=== PATIENT | female | born 1965 | race Caucasian/White ===

== ENCOUNTER → 2024-03-05 | Outpatient (CLI) | payer MEDICARE, MEDICAID, SELFPAY ==
--- NOTE | 2024-03-05 11:00 | MRI_ITS ---
STUDY: MRI RIGHT SHOULDER REASON FOR EXAM: Female, 58 years old. Pain - history of right dislocation right clavicle 3 months ago. TECHNIQUE: Standardized fat and water weighted pulse sequences were obtained in all 3 orthogonal planes. COMPARISON: None. FINDINGS: There is supraspinatus, infraspinatus, and subscapularis tendinosis without a full-thickness tear. Normal teres minor tendon. Normal supraspinatus muscle. Normal infraspinatus muscle. Normal subscapularis muscle. Normal teres minor muscle. Normal glenohumeral articulation. Normal humeral head and visualized proximal humerus. Normal biceps labral complex. Normal intracapsular long biceps tendon. Normal labrum. Normal capsulo-ligamentous complex. Normal rotator interval. There is severe hypertrophic acromioclavicular arthrosis with osseous fragmentation and inferior osteophyte formation, with effacement of the supraspinatus myotendinous junction. There is a Type II morphology (curved), with a neutral orientation. There is trace subacromial-subdeltoid bursal fluid. Normal visualized coracohumeral and coracoacromial ligaments. Normal quadrilateral space. Normal axillary space. Normal deltoid muscle. Normal trapezius muscle. MRI/Upper Ext Joint Only(Routine) IMPRESSION: Supraspinatus, infraspinatus, and subscapularis tendinosis without a full-thickness rotator cuff tear. Severe hypertrophic acromioclavicular arthrosis with osseous fragmentation and inferior osteophyte formation, with effacement of the supraspinatus myotendinous junction. Minimal subacromial-subdeltoid bursitis. Electronically Signed: Josue Staton MD at 9:19 EDT ,
== END | disposition home or self-care (01) ==
PROVIDERS: PCP Internal Medicine; Referring Provider Orthopaedic Surgery Sports Medicine; Visit Provider Orthopaedic Surgery Sports Medicine
DX: M25.511 Pain in right shoulder (principal)
CPT/HCPCS: 73221

== ENCOUNTER → 2024-09-14 | Outpatient (CLI) | payer MEDICARE, MEDICAID, SELFPAY ==
--- NOTE | 2024-07-31 00:57 | EKG12_ITS ---
Test Reason : PRE-OP Blood Pressure : */* mmHG Vent. Rate : 64 BPM Atrial Rate : 64 BPM P-R Int : 196 ms QRS Dur : 96 ms QT Int : 424 ms P-R-T Axes : 26 4 30 degrees QTcB Int : 437 ms Normal sinus rhythm Normal ECG No previous ECGs available Confirmed by SILVIA ALMANZA, CYNDEE ([id number]), editor greeting card NALINI WORKMAN ([id number]) on 08/07/2024 7:40:40 AM Referred By: Joao Riggins Confirmed By: CYNDEE VEGA MD
[2024-08-01 06:06] VITALS: BP 113/87; PULSE 97; RESP 16; TEMP 36.1; O2SAT 72; BMI 30.9
[2024-08-01] MEDS: 0.9% Normal Saline (1000mL) 1,000 ML 15 ML IV (06:15)
[2024-08-01 06:24] LABS: Hematocrit 41.8 % (37-47); Hemoglobin 14.7 g/dL (12.0-15.0); Mean Corp Hgb Conc 35.2 g/dL (32-36); Mean Corpuscular Hgb 32.5 pg (27.0-32.0); Mean Corpuscular Volume 92.3 fL (81-99); Platelet Count 182 K/mm3 (150-450); RBC Distribution Width CV 13.2 % (11.6-14.6); RBC Distribution Width SD 44.5 fl (35.1-43.9); Red Blood Count 4.53 M/mm3 (4.2-5.4); White Blood Count 5.7 K/mm3 (4.4-11.0)
[2024-08-01 06:35] LABS: Partial Thromboplast Time 23.7 Seconds (24.1-36.2)
--- NOTE | 2024-08-01 06:40 | PRE.ANES_ITS ---
ASA Classification* ASA Classification ASA Classification: 2 Assessment & Plan Anesthesia* Anesthesia Assessment Anesthesia Assessment: Discussed sedation and/or anesthesia options, risks, benefits, and alternatives with patient/parents/legal guardian/POA. Questions invited. The patient/parents/legal guardian/POA seems to understand and agrees to proceed with anesthesia plan. Reviewed the physical assessment, medical history, allergy history and patient home medications list prior to surgery/procedure/anesthetic and documented any changes. Performed airway and anesthesia risk assessments. Anesthesia Type Anesthesia Type: General and Block (Patient is consented for interscalene block.) History Source History Obtained from:: Patient and Chart Anesthesia Focused Assessment* Temperature: 97 F Pulse Rate: 97 Blood Pressure: 113/87 Respiratory Rate: 16 Pulse Ox: 72 Oxygen Delivery Method: Room Air Airway Assessment Mouth opens: >3 cm Mallampati Score: IV Teeth Condition: Dentures (Upper full dentures) and Partial (Lower partials. They are out. Rest are tight.) Neck Range of motion (ROM): Limited ROM (Somewhat decreased extension) Focused Labs Anesthesia Preop lab: CBC CHEMISTRY COAG Pre-Assessment Diagnosis/Proposed Procedure Planned Operative Procedure(s): RIGHT SHOULDER ARTHROSCOPY SUBCROMIAL DECOMPRESSION DISTAL CLAVICLE EXCISION Anesthesia History Anesthesia History - director telecommunications: Anesthesia History - director telecommunications Hx Hospitalization No 07/30/24 14:30 Any Problems With Anesthesia No 07/30/24 14:30 Cholinesterase deficiency No 07/30/24 14:30 You/Your Family Experience No 07/30/24 14:30 fever (hyperthermia) with Relationship Recent Exposure to Contagious No 08/01/24 06:06 Disease Does patient have nerve No 07/30/24 14:30 stimulator Patient instructed to have device shut off --Does patient have Pacemaker No 08/01/24 06:06 or ICD? When Was Last Pacemaker Check QUESTION #4 FULL TEXT: You/Your Family Experience fever (hyperthermia) with Anesthesia Last Oral Intake Last Oral intake: Last Oral Intake NPO since 05:00 08/01/24 06:06 Meds taken in AM with sips of water? Meds patient instructed to take am of surgery Any additional information?: Yes NPO since: 05:00 (Patient had water at 5 AM.) PONV PONV - director telecommunications: PONV - director telecommunications Female Yes 07/30/24 14:30 HX of Motion Sickness No 07/30/24 14:30 HX of N/V After Surgery No 07/30/24 14:30 Non-Smoker Yes 07/30/24 14:30 Duration of Surgery greater Yes 07/30/24 14:30 than 60 minutes Number of Risk Factors 3 07/30/24 14:30 PONV Score Moderate Risk 07/30/24 14:30 Height & Weight Height & Weight: Anesthesia: Height & Weight Height 5 ft 6 in 08/01/24 06:06 Weight: 87.09 kg 08/01/24 06:06 Body Mass Index (BMI) 30.9 08/01/24 06:06 Respiratory Assessment Respiratory Assessment - director telecommunications: Respiratory Tract Infection Hx - director telecommunications Hx Respiratory Tract Infection No 07/30/24 14:30 STOP Sleep Apnea STOP Sleep Apnea - director telecommunications: STOP Sleep Apnea - director telecommunications Hx Hypertension Yes: CONTROLLED WITH MED 07/30/24 14:30 Hx Sleep Apnea No 07/30/24 14:30 CPAP BIPAP Do you snore loudly (louder No 07/30/24 14:30 than talking or can be heard Do you often feel tired/ Yes 07/30/24 14:30 fatigued/ sleepy during daytime? Has anyone observed you stop No 07/30/24 14:30 breathing during sleep? STOP Results Positive 07/30/24 14:30 QUESTION #5 FULL TEXT : Do you snore loudly (louder than talking or can be heard through closed doors)? 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 Specify any problems Hx of Preganancy in last 3 No 07/30/24 14:30 Months Nurse Filling Out Transfusion DSCHRIBER 07/30/24 14:30 & Questions: Date: 07/30/24 07/30/24 14:30 Time: 14:31 07/30/24 14:30 Patient unable to answer at this time (ie. confused, unrespo /Reproduction History /Reproductive History - director telecommunications: /Reproductive Hx- director telecommunications Hx Now No 07/30/24 14:30 Gestational Age (in weeks): EDC: Hx Hx Para Hx Section SAB No 07/30/24 14:30 Active Medications Active Medications: Current Medications Generic Name Dose Route Start Last Admin Trade Name Freq PRN Reason Stop Dose Admin Cefazolin Sodium 2 gm/ N/A 20 mls @ 400 mls/hr 08/01/24 07:30 IV 08/01/24 07:32 PREOP ONE Sodium Chloride 1,000 mls @ 15 mls/hr 08/01/24 05:50 08/01/24 06:15 IV 08/06/24 19:09 15 mls/hr .Q48H JOAN Administration Protocol PFSH Medical History Wears contact lenses Wears glasses Wears partial dentures Wears dentures Migraine headache Depression Marijuana use Alcohol use Arthritis Pulmonary embolism High cholesterol Easy bruising Back pain Injury of head and neck Former smoker Chronic cough Hypertension Tendinosis of right rotator cuff Impingement of right shoulder Arthrosis of right acromioclavicular joint Breast cancer Right shoulder pain Home Medications ?Medication ?Instructions ?Recorded ?Last Taken ?Type atorvastatin 40 mg tablet 40 mg PO QHS cholesterol 01/19/24 07/31/24 History chlorthalidone 25 mg tablet 25 mg PO QDAY 01/19/24 07/31/24 History fexofenadine 60 mg tablet (Ursula 60 mg PO DAILY 01/19/24 07/31/24 History Allergy) sertraline 100 mg tablet 100 mg PO QDAY 01/19/24 07/31/24 History topiramate 25 mg tablet 25 mg PO BID 01/19/24 07/31/24 History valacyclovir 500 mg tablet 500 mg PO QDAY 01/19/24 07/31/24 History Allergy/AdvReac Type Severity Reaction Status Date / Time [place] Allergy Other Verified 08/01/24 06:05 ibuprofen AdvReac Vomiting Verified 08/01/24 06:05 Family History Other Cancer Heart disease Hypertension Leukemia Surgical History History of laparoscopic cholecystectomy H/O breast surgery H/O tubal ligation H/O toe surgery H/O brain surgery Social History household members: spouse Smoking Status: Former smoker alcohol intake: current alcohol intake frequency: holidays/special occasions only Review of Systems (Anesthesia) ROS Narrative System reviewed and no additional complaints, except as documented.
[2024-08-01 06:42] VITALS: BP 113/87; PULSE 97; RESP 16; TEMP 36.1; O2SAT 72
[2024-08-01 06:48] LABS: AST(SGOT) 87 U/L (15-37); Alanine Aminotransfer ALT/SGPT 105 U/L (13-56); Albumin, Serum 3.9 g/dL (3.2-5.0); Alkaline Phosphatase 99 U/L (45-117); Anion Gap 9 (5-15); BUN 13 mg/dL (7-18); BUN/Creat Ratio 22.5 RATIO (10-20); Bilirubin, Direct 0.21 mg/dL (0.00-0.30); Calcium,Total 9.4 mg/dL (8.5-10.1); Chloride 100 mmol/L (98-107); Creatinine, Serum 0.58 mg/dL (0.55-1.02); EST Glomerular Filtration Rate 114 mL/min (>60); Est Glom Filt Rate - Afr Amer 138 mL/min (>60); Globulin 3.9 g/dL (2.2-4.2); Glucose 124 mg/dL (74-106); Potassium 2.7 mmol/L (3.5-5.1); Protein, Total 7.8 g/dL (6.4-8.2); Sodium Level 136 mmol/L (136-145)
[2024-08-01] MEDS: Potassium Chloride Oral Tablet 20 MEQ PO (07:13)
[2024-08-01] MEDS: Potassium Chloride 20mEq/100mL 20 MEQ/100 ML IV.SOLN. 50 MEQ IV (07:14)
--- NOTE | 2024-08-01 07:58 | PCM.HP.STD ---
HPI - General HPI Narrative CAL SMITH, is a 59 F who presents for right shoulder arthroscopy, subacromial decompression, debridement, distal clavicle excision. No changes to history and physical exam. Right shoulder marked. Risks alternatives benefits as well as postoperative recovery and narcotic counseling done. Patient understands wished to proceed. The patient did have a low potassium that is being corrected by anesthesia if that can come up to within the normal range then we will proceed with the case otherwise this may have to be delayed or canceled. MR#: [id number] Acct: [id number] Name: CAL SMITH Rep #: [id number] : 1965 Provider: Dr. Joao Riggins MD Age/Sex: 58/F Location: [facility] [place] Status: Signed Intake Vital Signs 01/19/2408:47 Height 5 ft 6 in Weight: 202 lb 6 oz BMI 32.6 Intake Visit Reasons: RIGHT SHOULDER Accompanied by: Self Is patient in pain?: Yes Pain scale (1-10): 8 Allergies [place] Allergy (Verified 03/08/24 14:17) Otheribuprofen Adverse Reaction (Verified 03/08/24 14:17) Vomiting Medications ?Medication ?Instructions ?Recorded ?Confirmed ?Type atorvastatin 40 mg tablet 40 mg PO QHS cholesterol 01/19/24 01/19/24 History chlorthalidone 25 mg tablet 25 mg PO QDAY 01/19/24 01/19/24 History fexofenadine 60 mg tablet (Ursula 60 mg PO DAILY 01/19/24 01/19/24 History Allergy) sertraline 100 mg tablet 100 mg PO QDAY 01/19/24 01/19/24 History topiramate 25 mg tablet 25 mg PO BID 01/19/24 01/19/24 History valacyclovir 500 mg tablet 500 mg PO QDAY 01/19/24 01/19/24 History oxycodone-acetaminophen 5 mg-325 tab PO PRN 03/08/24 03/08/24 History mg tablet PFSH Medical History Tendinosis of right rotator cuff Impingement of right shoulder Arthrosis of right acromioclavicular joint Breast cancer Cholecystectomy planned Right shoulder pain Surgical History H/O breast surgery H/O tubal ligation H/O toe surgery H/O brain surgery Family History Other Cancer Heart disease Hypertension Leukemia Social History household members: spouse Smoking Status: Former smoker alcohol intake: current alcohol intake frequency: holidays/special occasions only HPI RIGHT SHOULDER Details: This documentation accurately reflects the service provided and the decisions made by me, Dr. Joao Riggins MD 03/08/24 0846. Part of today?s visit was documented by [ ], acting as scribe. CAL SMITH is a 58 year old F here today for FU R shoulder MRI. Patient still having pain on the lateral aspect of the shoulder going down the arm worse at night and with lifting. Patient had an injury many years ago to the AC joint as well. They felt like the injection only helped about 15%. Supplemental Info [facility] Imaging Services [facility] [place], [place] [address] Upper Ext Joint Only(Routine) MR#: [id number] Acct: [id number] Name: CAL SMITH Rep #: [id number] : 1965 F 58 From: Josue Staton MD PCP: Dr. Kait Hall, Status: REG CLI Study: Upper Ext Joint Only(Routine) Date of Exam: 03/05/24 Exam# [id number] Ordering Dr: Joao Riggins MD STUDY: MRI RIGHT SHOULDER REASON FOR EXAM: Female, 58 years old. Pain - history of right dislocation right clavicle 3 months ago. TECHNIQUE: Standardized fat and water weighted pulse sequences were obtained in all 3 orthogonal planes. COMPARISON: None. FINDINGS: There is supraspinatus, infraspinatus, and subscapularis tendinosis without a full-thickness tear. Normal teres minor tendon. Normal supraspinatus muscle. Normal infraspinatus muscle. Normal subscapularis muscle. Normal teres minor muscle. Normal glenohumeral articulation. Normal humeral head and visualized proximal humerus. Normal biceps labral complex. Normal intracapsular long biceps tendon. Normal labrum. Normal capsulo-ligamentous complex. Normal rotator interval. There is severe hypertrophic acromioclavicular arthrosis with osseous fragmentation and inferior osteophyte formation, with effacement of the supraspinatus myotendinous junction. There is a Type II morphology (curved), with a neutral orientation. There is trace subacromial-subdeltoid bursal fluid. Normal visualized coracohumeral and coracoacromial ligaments. Normal quadrilateral space. Normal axillary space. Normal deltoid muscle. Normal trapezius muscle. MRI/Upper Ext Joint Only(Routine) IMPRESSION: Supraspinatus, infraspinatus, and subscapularis tendinosis without a full-thickness rotator cuff tear. Severe hypertrophic acromioclavicular arthrosis with osseous fragmentation and inferior osteophyte formation, with effacement of the supraspinatus myotendinous junction. Minimal subacromial-subdeltoid bursitis. Electronically Signed: Josue Staton MD at 9:19 EDT Reading Location ID and State: [address] [place] [address] , Service support , I independently reviewed the imaging. Concur with radiologist report. Coding Level of Care Code Off vis,est,level 3 Diagnoses Arthrosis of right acromioclavicular joint M19.011 Right shoulder pain M25.511 Impingement of right shoulder M25.811 Tendinosis of right rotator cuff M67.813 Assessment and Plan Assessment and Plan (1) Arthrosis of right acromioclavicular joint: Status: Acute Plan: 58-year-old female with right shoulder pain pain at the AC joint positive cross body adduction test with arthritis and arthrosis of the AC joint impingement on the rotator cuff with no tears. Patient counseled as the diagnosis prognosis different treatment options available including but not limited to doing nothing rest ice anti-inflammatories active modifications repeat cortisone injections physical therapy and surgery. In the setting in my hands would be in the form of right shoulder arthroscopy, subacromial decompression, debridement, distal clavicle excision. Counseled patient on the risks of this including risks of instability at the AC joint damage other structures possible need for repair of the rotator cuff if I saw tear or other concomitant procedures based on intraoperative arthroscopy findings. They understand wish to proceed with surgery no further questions or concerns. Pros and cons risks and benefits were discussed with the patient including but not limited to infection, pain, stiffness, bleeding, damage to surrounding structures, neurovascular injury, recurrence or retear, failure or wear of hardware or fixation, instability, fracture, deep vein thrombosis and pulmonary embolism, anesthetic risks, , patient dissatisfaction, need for further surgery and other risks. Patient understood and wished to proceed with surgery, and signed the informed consent documentation. (2) Right shoulder pain: Status: Acute (3) Impingement of right shoulder: Status: Acute (4) Tendinosis of right rotator cuff: Status: Acute Ortho Exam General General: Yes no acute distress Neurologic: Yes alert and Yes oriented x3 Psychologic: Yes reasonable and appropriate Right Shoulder Skin/Wound: Yes CDI, No ecchymosis, No erythema and No swelling Testing: Positive Hawkin's, Neer's, Speed's, TTP Biceps, TTP AC Joint, empty can, [place], cross arm and belly press normal; Negative Drop Arm, Apprehension Test or scapular winging SHOULDER: normal motor and sens to ax nerve, and MRU and AIN/PIN Active forward elevation 110 degrees passively 165 degrees. External rotation 45 degrees. Internal rotation back pocket. Strength in forward elevation 4/5 strength in external rotation 4+/5. [facility] Medical History Wears contact lenses Wears glasses Wears partial dentures Wears dentures Migraine headache Depression Marijuana use Alcohol use Arthritis Pulmonary embolism High cholesterol Easy bruising Back pain Injury of head and neck Former smoker Chronic cough Hypertension Tendinosis of right rotator cuff Impingement of right shoulder Arthrosis of right acromioclavicular joint Breast cancer Right shoulder pain Home Medications ?Medication ?Instructions ?Recorded ?Last Taken ?Type atorvastatin 40 mg tablet 40 mg PO QHS cholesterol 01/19/24 07/31/24 History chlorthalidone 25 mg tablet 25 mg PO QDAY 01/19/24 07/31/24 History fexofenadine 60 mg tablet (Ursula 60 mg PO DAILY 01/19/24 07/31/24 History Allergy) sertraline 100 mg tablet 100 mg PO QDAY 01/19/24 07/31/24 History topiramate 25 mg tablet 25 mg PO BID 01/19/24 07/31/24 History valacyclovir 500 mg tablet 500 mg PO QDAY 01/19/24 07/31/24 History Allergy/AdvReac Type Severity Reaction Status Date / Time [place] Allergy Other Verified 08/01/24 06:05 ibuprofen AdvReac Vomiting Verified 08/01/24 06:05 Family History Other Cancer Heart disease Hypertension Leukemia Surgical History History of laparoscopic cholecystectomy H/O breast surgery H/O tubal ligation H/O toe surgery H/O brain surgery Social History household members: spouse Smoking Status: Former smoker alcohol intake: current alcohol intake frequency: holidays/special occasions only Vital Signs Vital Signs Vital Signs: 08/01/24 06:06 08/01/24 06:06 08/01/24 06:48 Temperature 97 F L 97 F L Temperature Source Temporal Pulse Rate 97 97 Respiratory Rate 16 16 Respiratory Pattern Normal Blood Pressure 113/87 H 113/87 H Blood Pressure Mean 95 Blood Pressure Source Monitor Blood Pressure Position Semi-Fowlers Blood Pressure Location Right Arm Pulse Ox 72 72 Oxygen Delivery Method Room Air Room Air Weight Weight: 192 lb Body Mass Index (BMI) 30.9 Results Lab / Micro Data 08/01/24 06:00 08/01/24 06:00 Labs: Laboratory Results - last 24 hr 08/01/24 06:00: WBC 5.7, RBC 4.53, Hgb 14.7, Hct 41.8, MCV 92.3, MCH 32.5 H, MCHC 35.2, RDW Std Deviation 44.5 H, RDW Coeff of Jina 13.2, Plt Count 182, MPV 11.0, PT 13.0, INR 1.0, APTT 23.7 L, Sodium 136, Potassium 2.7 L*, Chloride 100, Carbon Dioxide 27.0, Anion Gap 9, BUN 13, Creatinine 0.58, Estim Creat Clear Calc 116.10, Est GFR (MDRD) Af Amer 138, Est GFR (MDRD) Non-Af 114, BUN/Creatinine Ratio 22.5 H, Glucose 124 H, Calcium 9.4, Total Bilirubin 0.70, Direct Bilirubin 0.21, AST 87 H, ALT 105 H, Alkaline Phosphatase 99, Total Protein 7.8, Albumin 3.9, Globulin 3.9
[2024-08-01 10:46] LABS: Potassium 2.8 mmol/L (3.5-5.1)
--- NOTE | 2024-08-01 10:54 | PN.ORTHO_ITS ---
Objective Data Objective Data Vital Signs: Vital Signs Temp Pulse Resp BP Pulse Ox O2 Del Method 97 F L 97 16 113/87 H 72 Room Air 08/01/24 06:42 08/01/24 06:42 08/01/24 06:42 08/01/24 06:42 08/01/24 06:42 08/01/24 06:48 Oxygen Delivery Method Room Air Weight: 192 lb Body Mass Index (BMI) 30.9 Intake & Output: Intake and Output for Last 24 Hours 07/30/24 07/31/24 08/01/24 23:59 23:59 23:59 Intake Total 100 / 100 Balance 100 / 100 Lab / Micro Data 08/01/24 06:00 08/01/24 10:11 Labs: Laboratory Results - last 24 hr 08/01/24 06:00: WBC 5.7, RBC 4.53, Hgb 14.7, Hct 41.8, MCV 92.3, MCH 32.5 H, MCHC 35.2, RDW Std Deviation 44.5 H, RDW Coeff of Jina 13.2, Plt Count 182, MPV 11.0, PT 13.0, INR 1.0, APTT 23.7 L, Sodium 136, Potassium 2.7 L*, Chloride 100, Carbon Dioxide 27.0, Anion Gap 9, BUN 13, Creatinine 0.58, Estim Creat Clear Calc 116.10, Est GFR (MDRD) Af Amer 138, Est GFR (MDRD) Non-Af 114, B UN/Creatinine Ratio 22.5 H, Glucose 124 H, Calcium 9.4, Total Bilirubin 0.70, Direct Bilirubin 0.21, AST 87 H, ALT 105 H, Alkaline Phosphatase 99, Total Protein 7.8, Albumin 3.9, Globulin 3.9 08/01/24 10:11: Potassium 2.8 L Assessment & Plan Assessment/Plan (1) Tendinosis of right rotator cuff: PLAN: CASE CANCELLED due to low potassium. only came up to 2.8. too low for anesthesia. Will arrange FU with GP to get K up to at least > 3 for day of surgery. Patient explained reasons. We tried to get K up, but unable to achieve a safe level. (2) Impingement of right shoulder:
== END | disposition home or self-care (01) ==
LOC: AC 08-01 05:54 → PAT 12:58
PROVIDERS: Anesthesiology; PCP Internal Medicine; Referring Provider Orthopaedic Surgery Sports Medicine; Visit Provider Orthopaedic Surgery Sports Medicine
DX: M19.011 Primary osteoarthritis, right shoulder (principal); M75.41 Impingement syndrome of right shoulder; Z53.9 Procedure and treatment not carried out, unspecified reason; R07.9 Chest pain, unspecified; E87.6 Hypokalemia; Z87.891 Personal history of nicotine dependence
CPT/HCPCS: 29824; 29826; 80048; 80076; 84132; 85027; 85610; 85730; 93005; J2405

== ENCOUNTER 2024-10-31 07:04 | Day surgery (SDC) | payer MEDICARE, MEDICAID, SELFPAY ==
[2024-10-31] VITALS (10 sets, daily range): BP systolic 120–153; BP diastolic 71–94; PULSE 55–72; RESP 14–16; TEMP 35.7–36.1; O2SAT 89–97; BMI 31.1
[2024-10-31] MEDS: Lactated Ringers 1,000 ML 15 ML IV (07:43)
--- NOTE | 2024-10-31 08:16 | PCM.PRE.AN2 ---
ASA Classification* ASA Classification ASA Classification: 2 Assessment & Plan Anesthesia* Anesthesia Assessment Anesthesia Assessment: Discussed sedation and/or anesthesia options, risks, benefits, and alternatives with patient/parents/legal guardian/POA. Questions invited. The patient/parents/legal guardian/POA seems to understand and agrees to proceed with anesthesia plan. Reviewed the physical assessment, medical history, allergy history and patient home medications list prior to surgery/procedure/anesthetic and documented any changes. Performed airway and anesthesia risk assessments. Anesthesia Type Anesthesia Type: General (repeat potassium lab) and Block Anesthesia Focused Assessment* Temperature: 96.3 F Pulse Rate: 55 Blood Pressure: 120/71 Respiratory Rate: 16 Pulse Ox: 97 Airway Assessment Mouth opens: >3 cm Mallampati Score: II Focused Labs Anesthesia Preop lab: CBC WBC 5.7 K/mm3 (4.4-11.0) 08/01/24 06:00 08/01/24 RBC 4.53 M/mm3 (4.2-5.4) 08/01/24 06:00 08/01/24 Hgb 14.7 g/dL (12.0-15.0) 08/01/24 06:00 08/01/24 Hct 41.8 % (37-47) 08/01/24 06:00 08/01/24 Plt Count 182 K/mm3 (150-450) 08/01/24 06:00 08/01/24 CHEMISTRY Potassium 2.8 mmol/L (3.5-5.1) L 08/01/24 10:11 08/01/24 Sodium 136 mmol/L (136-145) 08/01/24 06:00 08/01/24 BUN 13 mg/dL (7-18) 08/01/24 06:00 08/01/24 Creatinine 0.58 mg/dL (0.55-1.02) 08/01/24 06:00 08/01/24 Glucose 124 mg/dL (74-106) H 08/01/24 06:00 08/01/24 COAG PT 13.0 SECONDS (11.7-14.9) 08/01/24 06:00 08/01/24 Pre-Assessment Diagnosis/Proposed Procedure Planned Operative Procedure(s): (R) Right shoulder Arthroscopy, subacromial decompression, debridement, distal clavicle excision Anesthesia History Anesthesia History - service provider: Anesthesia History - service provider Hx Hospitalization No 10/18/24 11:58 Any Problems With Anesthesia No 10/18/24 11:58 Cholinesterase deficiency No 10/18/24 11:58 You/Your Family Experience No 10/18/24 11:58 fever (hyperthermia) with Relationship Recent Exposure to Contagious No 10/31/24 07:40 Disease Does patient have nerve No 10/18/24 11:58 stimulator Patient instructed to have device shut off --Does patient have Pacemaker No 10/31/24 07:40 or ICD? When Was Last Pacemaker Check QUESTION #4 FULL TEXT: You/Your Family Experience fever (hyperthermia) with Anesthesia Last Oral Intake Last Oral intake: Last Oral Intake NPO since 21:00 10/31/24 07:40 Meds taken in AM with sips of No 10/31/24 07:40 water? Meds patient instructed to take am of surgery PONV PONV - service provider: PONV - service provider Female Yes 10/18/24 11:58 HX of Motion Sickness No 10/18/24 11:58 HX of N/V After Surgery No 10/18/24 11:58 Non-Smoker Yes 10/18/24 11:58 Duration of Surgery greater Yes 10/18/24 11:58 than 60 minutes Number of Risk Factors 3 10/18/24 11:58 PONV Score Moderate Risk 10/18/24 11:58 Height & Weight Height & Weight: Anesthesia: Height & Weight Height 5 ft 6 in 10/31/24 07:40 Weight: 87.7 kg 10/31/24 07:40 Body Mass Index (BMI) 31.1 10/31/24 07:40 Respiratory Assessment Respiratory Assessment - service provider: Respiratory Tract Infection Hx - service provider Hx Respiratory Tract Infection No 10/18/24 11:58 STOP Sleep Apnea STOP Sleep Apnea - service provider: STOP Sleep Apnea - service provider Hx Hypertension No 10/18/24 11:58 Hx Sleep Apnea No 10/18/24 11:58 CPAP BIPAP Do you snore loudly (louder No 10/18/24 11:58 than talking or can be heard Do you often feel tired/ No 10/18/24 11:58 fatigued/ sleepy during daytime? Has anyone observed you stop No 10/18/24 11:58 breathing during sleep? STOP Results Negative 10/18/24 11:58 QUESTION #5 FULL TEXT : Do you snore loudly (louder than talking or can be heard through closed doors)? 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 Specify any problems Hx of Preganancy in last 3 N/A 10/18/24 11:58 Months Nurse Filling Out Transfusion NBUCHER 10/18/24 11:58 & Questions: Date: 10/18/24 10/18/24 11:58 Time: 12:00 10/18/24 11:58 Patient unable to answer at this time (ie. confused, unrespo /Reproduction History /Reproductive History - service provider: /Reproductive Hx- service provider Hx Now No 10/18/24 11:58 Gestational Age (in weeks): EDC: Hx Hx Para Hx Section SAB No 10/18/24 11:58 Active Medications Active Medications: Current Medications Generic Name Dose Route Start Last Admin Trade Name Freq PRN Reason Stop Dose Admin Cefazolin Sodium 2 gm/ N/A 20 mls @ 400 mls/hr 10/31/24 09:10 IV 10/31/24 09:12 INTRAOP ONE Lactated Ringer's 1,000 mls @ 15 mls/hr 10/31/24 07:30 10/31/24 07:43 IV 15 mls/hr .Q48H JOAN Administration PFSH Medical History Wears contact lenses Wears glasses Wears partial dentures Wears dentures Migraine headache Depression Marijuana use Alcohol use Arthritis Pulmonary embolism High cholesterol Easy bruising Back pain Injury of head and neck Former smoker Chronic cough Hypertension Tendinosis of right rotator cuff Impingement of right shoulder Arthrosis of right acromioclavicular joint Breast cancer Right shoulder pain Home Medications ?Medication ?Instructions ?Recorded ?Last Taken ?Type atorvastatin 40 mg tablet 40 mg PO QHS cholesterol 01/19/24 10/30/24 History chlorthalidone 25 mg tablet 25 mg PO QDAY 01/19/24 10/30/24 History fexofenadine 60 mg tablet (Ursula 60 mg PO DAILY 01/19/24 10/30/24 History Allergy) sertraline 100 mg tablet 100 mg PO QDAY 01/19/24 10/30/24 History topiramate 25 mg tablet 25 mg PO BID 01/19/24 10/30/24 History valacyclovir 500 mg tablet 500 mg PO QDAY 01/19/24 10/30/24 History Allergy/AdvReac Type Severity Reaction Status Date / Time cowlitz Allergy Other Verified 10/31/24 07:30 ibuprofen AdvReac Vomiting Verified 10/31/24 07:30 Family History Other Cancer Heart disease Hypertension Leukemia Surgical History History of laparoscopic cholecystectomy H/O breast surgery H/O tubal ligation H/O toe surgery H/O brain surgery Social History household members: spouse Smoking Status: Former smoker alcohol intake: current alcohol intake frequency: holidays/special occasions only Review of Systems (Anesthesia) ROS Narrative System reviewed and no additional complaints, except as documented.
[2024-10-31 08:31] LABS: Potassium 3.3 mmol/L (3.3-5.1)
--- NOTE | 2024-10-31 08:44 | PCM.HP.STD ---
HPI - General HPI Narrative CAL SMITH, is a 59 F who presents for right shoulder arthroscopy, subacromial decompression, debridement, distal clavicle excision. No changes to history and physical exam. Right shoulder marked. Risks alternatives benefits as well as postoperative recovery and narcotic counseling done. Patient understands wished to proceed. [Last time was delayed for potassium issues. ] MR#: [id number] Acct: [id number] Name: CAL SMITH Rep #: [id number] : 1965 Provider: Dr. Joao Riggins MD Age/Sex: 58/F Location: [facility] [place] Status: Signed Intake Vital Signs 01/19/2408:47 Height 5 ft 6 in Weight: 202 lb 6 oz BMI 32.6 Intake Visit Reasons: RIGHT SHOULDER Accompanied by: Self Is patient in pain?: Yes Pain scale (1-10): 8 Allergies port gamble Allergy (Verified 03/08/24 14:17)Otheribuprofen Adverse Reaction (Verified 03/08/24 14:17) Vomiting Medications ?Medication ?Instructions ?Recorded ?Confirmed ?Type atorvastatin 40 mg tablet 40 mg PO QHS cholesterol 01/19/24 01/19/24 History chlorthalidone 25 mg tablet 25 mg PO QDAY 01/19/24 01/19/24 History fexofenadine 60 mg tablet (Ursula 60 mg PO DAILY 01/19/24 01/19/24 History Allergy) sertraline 100 mg tablet 100 mg PO QDAY 01/19/24 01/19/24 History topiramate 25 mg tablet 25 mg PO BID 01/19/24 01/19/24 History valacyclovir 500 mg tablet 500 mg PO QDAY 01/19/24 01/19/24 History oxycodone-acetaminophen 5 mg-325 tab PO PRN 03/08/24 03/08/24 History mg tablet PFSH Medical History Tendinosis of right rotator cuff Impingement of right shoulder Arthrosis of right acromioclavicular joint Breast cancer Cholecystectomy planned Right shoulder pain Surgical History H/O breast surgery H/O tubal ligation H/O toe surgery H/O brain surgery Family History Other Cancer Heart disease Hypertension Leukemia Social History household members: spouse Smoking Status: Former smoker alcohol intake: current alcohol intake frequency: holidays/special occasions only HPI RIGHT SHOULDER Details: This documentation accurately reflects the service provided and the decisions made by me, Dr. Joao Riggins MD 03/08/24 0846. Part of today?s visit was documented by [ ], acting as scribe. CAL SMITH is a 58 year old F here today for FU R shoulder MRI. Patient still having pain on the lateral aspect of the shoulder going down the arm worse at night and with lifting. Patient had an injury many years ago to the AC joint as well. They felt like the injection only helped about 15%. Supplemental Info [facility] [address] [place] [address] Upper Ext Joint Only(Routine) MR#: [id number] Acct: [id number] Name: CAL SMITH Rep #: [id number] : 1965 F 58 From: Josue Staton MD PCP: Dr. Kait Hall, DO Status: REG CLI Study: Upper Ext Joint Only(Routine) Date of Exam: 03/05/24 Exam# [id number] Ordering Dr: Joao Riggins MD STUDY: MRI RIGHT SHOULDER REASON FOR EXAM: Female, 58 years old. Pain - history of right dislocation right clavicle 3 months ago. TECHNIQUE: Standardized fat and water weighted pulse sequences were obtained in all 3 orthogonal planes. COMPARISON: None. FINDINGS: There is supraspinatus, infraspinatus, and subscapularis tendinosis without a full-thickness tear. Normal teres minor tendon. Normal supraspinatus muscle. Normal infraspinatus muscle. Normal subscapularis muscle. Normal teres minor muscle. Normal glenohumeral articulation. Normal humeral head and visualized proximal humerus. Normal biceps labral complex. Normal intracapsular long biceps tendon. Normal labrum. Normal capsulo-ligamentous complex. Normal rotator interval. There is severe hypertrophic acromioclavicular arthrosis with osseous fragmentation and inferior osteophyte formation, with effacement of the supraspinatus myotendinous junction. There is a Type II morphology (curved), with a neutral orientation. There is trace subacromial-subdeltoid bursal fluid. Normal visualized coracohumeral and coracoacromial ligaments. Normal quadrilateral space. Normal axillary space. Normal deltoid muscle. Normal trapezius muscle. MRI/Upper Ext Joint Only(Routine) IMPRESSION: Supraspinatus, infraspinatus, and subscapularis tendinosis without a full-thickness rotator cuff tear. Severe hypertrophic acromioclavicular arthrosis with osseous fragmentation and inferior osteophyte formation, with effacement of the supraspinatus myotendinous junction. Minimal subacromial-subdeltoid bursitis. Electronically Signed: Josue Staton MD at 9:19 EDT , I independently reviewed the imaging. Concur with radiologist report. Coding Level of Care Code Off vis,est,level 3 Diagnoses Arthrosis of right acromioclavicular joint M19.011 Right shoulder pain M25.511 Impingement of right shoulder M25.811 Tendinosis of right rotator cuff M67.813 Assessment and Plan Assessment and Plan (1) Arthrosis of right acromioclavicular joint: Status: Acute Plan: 58-year-old female with right shoulder pain pain at the AC joint positive cross body adduction test with arthritis and arthrosis of the AC joint impingement on the rotator cuff with no tears. Patient counseled as the diagnosis prognosis different treatment options available including but not limited to doing nothing rest ice anti-inflammatories active modifications repeat cortisone injections physical therapy and surgery. In the setting in my hands would be in the form of right shoulder arthroscopy, subacromial decompression, debridement, distal clavicle excision. Counseled patient on the risks of this including risks of instability at the AC joint damage other structures possible need for repair of the rotator cuff if I saw tear or other concomitant procedures based on intraoperative arthroscopy findings. They understand wish to proceed with surgery no further questions or concerns. Pros and cons risks and benefits were discussed with the patient including but not limited to infection, pain, stiffness, bleeding, damage to surrounding structures, neurovascular injury, recurrence or retear, failure or wear of hardware or fixation, instability, fracture, deep vein thrombosis and pulmonary embolism, anesthetic risks, , patient dissatisfaction, need for further surgery and other risks. Patient understood and wished to proceed with surgery, and signed the informed consent documentation. (2) Right shoulder pain: Status: Acute (3) Impingement of right shoulder: Status: Acute (4) Tendinosis of right rotator cuff: Status: Acute Ortho Exam General General: Yes no acute distress Neurologic: Yes alert and Yes oriented x3 Psychologic: Yes reasonable and appropriate Right Shoulder Skin/Wound: Yes CDI, No ecchymosis, No erythema and No swelling Testing: Positive Hawkin's, Neer's, Speed's, TTP Biceps, TTP AC Joint, empty can, [place], cross arm and belly press normal; Negative Drop Arm, Apprehension Test or scapular winging SHOULDER: normal motor and sens to ax nerve, and MRU and AIN/PIN Active forward elevation 110 degrees passively 165 degrees. External rotation 45 degrees. Internal rotation back pocket. Strength in forward elevation 4/5 strength in external rotation 4+/5. [facility] Medical History Wears contact lenses Wears glasses Wears partial dentures Wears dentures Migraine headache Depression Marijuana use Alcohol use Arthritis Pulmonary embolism High cholesterol Easy bruising Back pain Injury of head and neck Former smoker Chronic cough Hypertension Tendinosis of right rotator cuff Impingement of right shoulder Arthrosis of right acromioclavicular joint Breast cancer Right shoulder pain Home Medications ?Medication ?Instructions ?Recorded ?Last Taken ?Type atorvastatin 40 mg tablet 40 mg PO QHS cholesterol 01/19/24 07/31/24 History chlorthalidone 25 mg tablet 25 mg PO QDAY 01/19/24 07/31/24 History fexofenadine 60 mg tablet (Ursula 60 mg PO DAILY 01/19/24 07/31/24 History Allergy) sertraline 100 mg tablet 100 mg PO QDAY 01/19/24 07/31/24 History topiramate 25 mg tablet 25 mg PO BID 01/19/24 07/31/24 History valacyclovir 500 mg tablet 500 mg PO QDAY 01/19/24 07/31/24 History Allergy/AdvReac Type Severity Reaction Status Date / Time port gamble Allergy Other Verified 08/01/24 06:05 ibuprofen AdvReac Vomiting Verified 08/01/24 06:05 Family History Other Cancer Heart disease Hypertension Leukemia Surgical History History of laparoscopic cholecystectomy H/O breast surgery H/O tubal ligation H/O toe surgery H/O brain surgery Social History household members: spouse Smoking Status: Former smoker alcohol intake: current alcohol intake frequency: holidays/special occasions only Vital Signs Vital Signs Vital Signs: 08/01/2505:06 08/01/2505:06 08/01/2505:48 Temperature 97 F L 97 F L Temperature Source Temporal Pulse Rate 97 97 Respiratory Rate 16 16 Respiratory Pattern Normal Blood Pressure 113/87 H 113/87 H Blood Pressure Mean 95 Blood Pressure Source Monitor Blood Pressure Position Semi-Fowlers Blood Pressure Location Right Arm Pulse Ox 72 72 Oxygen Delivery Method Room Air Room Air Weight Weight: 192 lb Body Mass Index (BMI) 30.9 Results Lab / Micro Data 08/01/24 06:00 08/01/24 06:00 Labs: Laboratory Results - last 24 hr 08/01/24 06:00: WBC 5.7, RBC 4.53, Hgb 14.7, Hct 41.8, MCV 92.3, MCH 32.5 H, MCHC 35.2, RDW Std Deviation 44.5 H, RDW Coeff of Jina 13.2, Plt Count 182, MPV 11.0, PT 13.0, INR 1.0, APTT 23.7 L, Sodium 136, Potassium 2.7 L*, Chloride 100, Carbon Dioxide 27.0, Anion Gap 9, BUN 13, Creatinine 0.58, Estim Creat Clear Calc 116.10, Est GFR (MDRD) Af Amer 138, Est GFR (MDRD) Non-Af 114, BUN/Creatinine Ratio 22.5 H, Glucose 124 H, Calcium 9.4, Total Bilirubin 0.70, Direct Bilirubin 0.21, AST 87 H, ALT 105 H, Alkaline Phosphatase 99, Total Protein 7.8, Albumin 3.9, Globulin 3.9 [facility] Medical History Wears contact lenses Wears glasses Wears partial dentures Wears dentures Migraine headache Depression Marijuana use Alcohol use Arthritis Pulmonary embolism High cholesterol Easy bruising Back pain Injury of head and neck Former smoker Chronic cough Hypertension Tendinosis of right rotator cuff Impingement of right shoulder Arthrosis of right acromioclavicular joint Breast cancer Right shoulder pain Home Medications ?Medication ?Instructions ?Recorded ?Last Taken ?Type atorvastatin 40 mg tablet 40 mg PO QHS cholesterol 01/19/24 10/30/24 History chlorthalidone 25 mg tablet 25 mg PO QDAY 01/19/24 10/30/24 History fexofenadine 60 mg tablet (Ursula 60 mg PO DAILY 01/19/24 10/30/24 History Allergy) sertraline 100 mg tablet 100 mg PO QDAY 01/19/24 10/30/24 History topiramate 25 mg tablet 25 mg PO BID 01/19/24 10/30/24 History valacyclovir 500 mg tablet 500 mg PO QDAY 01/19/24 10/30/24 History Allergy/AdvReac Type Severity Reaction Status Date / Time port gamble Allergy Other Verified 10/31/24 07:30 ibuprofen AdvReac Vomiting Verified 10/31/24 07:30 Family History Other Cancer Heart disease Hypertension Leukemia Surgical History History of laparoscopic cholecystectomy H/O breast surgery H/O tubal ligation H/O toe surgery H/O brain surgery Social History household members: spouse Smoking Status: Former smoker alcohol intake: current alcohol intake frequency: holidays/special occasions only Vital Signs Vital Signs Vital Signs: 10/31/24 07:40 10/31/24 07:40 10/31/24 08:17 Temperature 96.3 F L 96.3 F L Temperature Source Temporal Pulse Rate 55 L 55 L Respiratory Rate 16 16 Respiratory Pattern Normal Blood Pressure 120/71 120/71 Blood Pressure Mean 87 Blood Pressure Source Monitor Blood Pressure Position Semi-Fowlers Blood Pressure Location Right Arm Pulse Ox 97 97 Oxygen Delivery Method Room Air Weight Weight: 193 lb 5.526 oz Body Mass Index (BMI) 31.1 Results Lab / Micro Data 10/31/24 07:38 Labs: Laboratory Results - last 24 hr 10/31/24 07:38: Potassium 3.3
[2024-10-31] MEDS: Cefazolin 2 GM in Syringe IV (09:28)
[2024-10-31] MEDS: Epinephrine (1 mg/ml) 1 MG/ML VIAL (09:44)
--- NOTE | 2024-10-31 10:31 | PCM.OPRPT ---
Problems Associated Problem List Diagnoses (1) Tendinosis of right rotator cuff: (2) Impingement of right shoulder: (3) Arthrosis of right acromioclavicular joint: (4) Right shoulder pain: Procedures Musculoskeletal 20xxx-29xxx: Other Procedure See Report Operative Report (Standard) Operative Information Date of Procedure: 10/31/24 Pre-Operative Diagnosis: Right shoulder impingement syndrome and AC joint arthrosis Post-Operative Diagnosis: Right shoulder impingement syndrome AC joint arthrosis and small anterior leading edge supraspinatus tear Surgery/Procedure Performed: Right shoulder arthroscopy, subacromial decompression, distal clavicle excision, rotator cuff repair, debridement handbag parts cutter: Yes Holder Pile Driving: marjorie Tasks completed by first line supervisor: Retracting Additional community relations assistant?: No Type of Anesthesia: Block,Regional and General RN Documented Start/Stop Times: Operation Date: 10/31/24 09:10 Case Time Into Pre-Op 10/31/24 07:17 Anesthesia Start 10/31/24 09:16 Into Room 10/31/24 09:16 Out of Pre-Op 10/31/24 09:16 Procedure Start 10/31/24 09:44 Procedure Start Time: 09:44 Procedure Stop Time: 10:34 Select all DRAINS/GRAFTS/IMPLANTS that apply: Implanted device Implanted device details: Arthrex 4.75 mm swivel lock anchor Estimated Blood Loss: 50 Specimen collected: No Description of surgery: Patient brought to the operating room theater. Placed supine on the table. General anesthesia induced. Patient transferred right side up lateral decubitus beanbag positioner axillary roll used. All bony prominences padded. SCDs and legs. 2 g IV Ancef administered prior to the start of the case. Upper extremity prepped and draped in the usual sterile fashion with chlorhexidine-based prep solution allowing over 3 minutes drying time prior to draping. 10 pounds of inline traction with the arm in 40 degrees of abduction was used. Preoperative timeout performed confirm the site patient and surgery. Began by inserting the arthroscope into the intra-articular portion of the shoulder through a standard posterior arthroscopy portal. Did a full diagnostic arthroscopy. Normal cartilage on the glenoid and humeral head. No loose bodies. The labrum appeared slightly degenerative at the biceps attachment and anterior labrum, so did gentle debridement. LHB normal. I made anterior portal through the rotator interval. Leading edge 80% to 100% tear under surface supraspinatus, marked with spinal needle. Subscapularis normal as was the rest of the cuff. Next I turned my attention to and placed the scope in the subacromial space. I did a bursectomy there is a mild amount of inflammatory bursitis. I did a subacromial decompression for 4 mm. I did a distal clavicle excision as well using the high speed iesha for 4mm. I examined the superior aspect of the rotator cuff, identified spinal needle. Used accessory lateral portals and canulas. I completed the near full-thickness tear at the anterior leading edge of the supraspinatus tendon which was 1 cm x 1 cm. I prepared the footprint using a combination of shaving instruments as well as the Arthrex power pick instrument multiple trephination's for bony healing. I did inverted horizontal mattress using fiber tape suture. I then inserted these into a Arthrex 4.75 mm bio composite swivel lock anchor appropriately inserted this in the bone which achieved very good purchase and sutures cut short. Arthroscopy pictures taken and saved onto the case. Skin closed with 3-0 Monocryl. Skin cleaned with wet dry dressing followed application of Steri-Strips Adaptic 4 x 4 gauze ABD dressing cloth tape and an abduction pillow sling for the upper extremity. Patient woken up from general anesthetic transferred off the operating table and taken to postanesthetic care unit in stable condition. All sponge needle instrument counts were correct no complications plan for the patient discharge home according to day surgery criteria follow-up in the office in 2 weeks time and wearing the sling with breaks. CPT 66413, 94569, 98142, 00237? Surgical Findings: As above Complications Complications: No Admit VTE Documentation VTE Present on Admission: No VTE Mechan Device Prophylaxis: SCD's VTE Pharm Prophylaxis ordered?: No Reason prophylaxis not ordered: Treatment Not Indicated
--- NOTE | 2024-10-31 10:39 | EX.PCM.DISCH ---
Discharge Instructions Diet Discharge Diet: No restrictions Activity Ice area for (Minutes): 10 Lifting Restrictions: no lifting, pendulums 4x/day Additional Activity Instructions:: ok for hand wrist elbow rom, ok to remove sling at rest Dressing / Incision Call your doctor if your incision/area has: Continuous Slow Oozing, Sudden Increased Bleeding, Increased Pain/ Swelling, Increased Redness, Foul Smelling Discharge and Swelling at the incision site Call your doctor if you observe: Fever of 101 or Higher, Coldness, Increased Pain and Numbness or Tingling Remove Dressing in: leave in place till F/U Cleanse incision/area with: Do not get Incision Wet Follow Up Care Please Follow Up With: Joao Riggins MD When: 2 days or within 2 weeks Test Results: Test results from this visit will be discussed in further detail at your follow-up appointment, if applicable. Discharge Plan Admission Attending Provider: Joao Riggins Primary Care Provider: Moira Griffin Instructions Patient Instructions: After Shoulder Arthroscopy Print Language: Sammarinese Discharge Orders/Prescriptions Prescriptions: New oxycodone-acetaminophen [Endocet] 5-325 mg tablet 1 tab PO Q4H MDD 6 PRN (Reason: pain) 5 Days Qty: 30 0RF No Action sertraline 100 mg tablet 100 mg PO QDAY topiramate 25 mg tablet 25 mg PO BID atorvastatin 40 mg tablet 40 mg PO QHS fexofenadine [Ursula Allergy] 60 mg tablet 60 mg PO DAILY valacyclovir 500 mg tablet 500 mg PO QDAY chlorthalidone 25 mg tablet 25 mg PO QDAY Referrals / Follow Up: Moira Griffin, [employer] [Primary Care Provider] - Disposition Disposition (needs filled in before D/C Order can be placed): Home, Self Care
--- NOTE | 2024-10-31 10:45 | PCM.POST.ANE ---
Anesthesia: Postop Eval I Current Vital Signs Temperature: 97 F Pulse Rate: 69 Blood Pressure: 135/94 Respiratory Rate: 16 Pulse Ox: 92 Assessment Airway patent: Yes Spontaneous unlabored respirations: Yes nausea: No Vomiting: No Anesthesia Complication: No Fluid Hydration Crystalloid volume administer (ml): 1,000 Total IV fluid infused: 1,000 Progress Note Anesthesia document: Postop Eval 1 completed: Yes
--- NOTE | 2024-10-31 11:11 | POSTOPAN2_ITS ---
Anesthesia Postop Eval I Sum Postop Eval Completion status Anesthesia document: Postop Eval 1 completed: Yes Anesthesia Postop Eval I Summary Anesthesia Postop Eval I Summary: Anesthesia Postop Eval I: Assessment Summary Airway patent Yes 10/31/24 10:45 [email or web address] Spontaneous unlabored Yes 10/31/24 10:45 [email or web address] [email or web address] respirations Mental status nausea No 10/31/24 10:45 [email or web address] Vomiting No 10/31/24 10:45 [email or web address] Anesthesia Postop Eval I: Fluid Summary Crystalloid volume administer 1,000 10/31/24 10:45 [email or web address] (ml) Colloids volume administered ( ml) Blood Product volume administered (ml) Total IV fluid infused 1,000 10/31/24 10:45 [email or web address] Anesthesia Postop Eval I: Summary Notes Anesthesia Complication No 10/31/24 10:45 [email or web address] Anesthesia Complication Comment: Post-operative progress note Anesthesia: Postop Eval II Evaluation Mental status: Awake Pain Level: 0 nausea: No Vomiting: No
--- NOTE | 2024-10-31 11:11 | PCM.POSTANE2 ---
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 Spontaneous unlabored Yes 10/31/24 10:45 [email or web address] [email or web address] respirations Mental status nausea No 10/31/24 10:45 [email or web address] [email or web address] Vomiting No 10/31/24 10:45 [email or web address] Anesthesia Postop Eval I: Fluid Summary Crystalloid volume administer 1,000 10/31/24 10:45 [email or web address] (ml) Colloids volume administered ( ml) Blood Product volume administered (ml) Total IV fluid infused 1,000 10/31/24 10:45 [email or web address] Anesthesia Postop Eval I: Summary Notes Anesthesia Complication No 10/31/24 10:45 [email or web address] Anesthesia Complication Comment: Post-operative progress note Anesthesia: Postop Eval II Evaluation Mental status: Awake Pain Level: 0 nausea: No Vomiting: No
== END 2024-10-31 12:31 | disposition home or self-care (01) ==
LOC: SDC 07:06 → AC 07:08
PROVIDERS: Anesthesiology; Referring Provider Orthopaedic Surgery Sports Medicine; Visit Provider Orthopaedic Surgery Sports Medicine
PROC: (CPT 29805; principal; 2024-10-31 08:50)
DX: M75.101 Unspecified rotator cuff tear or rupture of right shoulder, not specified as traumatic (principal); M19.011 Primary osteoarthritis, right shoulder; M75.41 Impingement syndrome of right shoulder; I10 Essential (primary) hypertension; E78.00 Pure hypercholesterolemia, unspecified; M25.811 Other specified joint disorders, right shoulder; M67.813 Other specified disorders of tendon, right shoulder; Z87.891 Personal history of nicotine dependence
CPT/HCPCS: 29827; 29826; 29824; 64415; 01630; 84132; C1713; J2405